=== PATIENT | female | born 2000 | race Caucasian/White ===

== ENCOUNTER 2024-07-14 02:28 | Emergency (ER) | payer OTHER ==
[2024-07-14 02:38] VITALS: BP 127/79; PULSE 130; RESP 20; TEMP 98.2
[2024-07-14] MEDS ORDERED: IBUPROFEN 400 MG TABLET (FP) PO ONE (03:13)
[2024-07-14] MEDS ORDERED: ACETAMINOPHEN 500 MG TABLET (FP) ONE (03:13)
[2024-07-14] MEDS: IBUPROFEN 400 MG TABLET (FP) PO ONE (03:14)
[2024-07-14] MEDS: ACETAMINOPHEN 500 MG TABLET (FP) PO ONE (03:15)
[2024-07-14] MEDS ORDERED: DIPHTH,PERTUSS(ACELL),TET 0.5 ML DISP.SYRIN IM ONE (03:46)
[2024-07-14] MEDS: DIPHTH,PERTUSS(ACELL),TET 0.5 ML DISP.SYRIN IM ONE (03:50)
== END 2024-07-14 04:38 | disposition home or self-care (01) ==
LOC: JER 02:28
PROC: 0CQ1XZZ Repair Lower Lip, External Approach (ICD-10-PCS; principal; 2024-07-14)
PROC: 3E0234Z Introduction of Serum, Toxoid and Vaccine into Muscle, Percutaneous Approach (ICD-10-PCS; 2024-07-14)
DX: S01.511A Laceration without foreign body of lip, initial encounter (principal); Y04.8XXA Assault by other bodily force, initial encounter; Z23 Encounter for immunization
CPT/HCPCS: 12011-25; 90471; 90715; 99284-25